=== PATIENT | male | born 1965 | race Caucasian/White ===

== ENCOUNTER 2020-11-02 07:43 | Day surgery (SDC) | payer OTHER ==
[~2020-11-02] VITALS: Ht 182.9 cm; Wt 93.0 kg
--- NOTE | ~2020-11-02 | OR ---
[facility] [address], [place] [address] Draft DATE OF OPERATION: 11/02/2020 SURGEON: Zita Magaña MD PREOPERATIVE DIAGNOSES: Episodic epigastric pain, possible gastroesophageal reflux. POSTOPERATIVE DIAGNOSES: 1. Normal-appearing esophageal mucosa with associated small hiatal hernia. 2. Mild diffuse gastritis with antral erosions. PROCEDURE: Esophagogastroduodenoscopy with biopsy. ANESTHESIA: Intravenous sedation, fentanyl 100 mcg and Versed 4 mg. INDICATION: This 55-year-old white man is a patient of Dr. Ashish Elias of [place], [place]. He has had episodes of significant severe epigastric pain, which were relieved primarily by PPI medication. He lists as his current medication Pepcid and Prilosec currently. 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 He is admitted at this time to undergo upper endoscopy to better characterize this problem. Notably, he has no dysphagia or hematemesis or blood per rectum. His family history is unknown as regard to esophageal or gastric cancer as he is adopted. He understands the risks of upper endoscopy including, but not limited to bleeding, infection, and perforation and wished to proceed. FINDINGS: Esophageal mucosa looked quite good overall. There was a poor flap valve consistent with small hiatal hernia. There was mild reticular diffuse gastritis and a few minor erosions of the antrum. CLOtest was negative. The duodenum was normal. DESCRIPTION OF PROCEDURE: The patient was brought to the endoscopy suite, given topical lidocaine hypopharyngeal anesthesia and placed in lateral decubitus position. He was given intravenous sedation to the point of slurred speech and nystagmus with full cardiopulmonary monitoring. A bite block was placed. An Olympus video upper endoscope was passed in the hypopharynx. The vocal cords PATIENT NAME: CHAPIN DOWNING OPERATIVE REPORT DATE OF : 65 REPORT #: [id number] PHYSICIAN: ZITA MAGAÑA MD PCP: ASHISH ELIAS MD REPORT IS CONFIDENTIAL AND NOT TO BE RELEASED WITHOUT AUTHORIZATION [facility] [address], [place] [address] Draft appeared normal. Scope was advanced to the esophagus without problem throughout its length, it was normal with no evidence of Koehler's epithelium, stricture, neoplasm or severe esophagitis in any way. The scope was advanced to the stomach, which was insufflated with air. There was no sign of bile within the stomach. Rugal folds appeared normal. The scope was passed to the antrum where there were mild superficial erosive changes. The pylorus was normal. Scope was passed through into the duodenum. Duodenum was normal including the bulbar portion. Biopsies were obtained to assess for celiac disease. The scope was withdrawn. A biopsy was then taken of the antrum for both JOVANNY and pathologic testing. Retroflexed view showed a compromised flap valve, easy withdrawal of the tip of the scope into the esophagus was noted. The proximal stomach did have mild reticular diffuse gastritis for which biopsies were also obtained. The scope was straightened withdrawn and biopsies taken of the distal esophagus and subsequently mid esophagus. Careful withdrawal of scope showed no other abnormalities more proximally. The vocal cords were well visualized and normal. The scope was removed and the patient was taken to the recovery room in good condition. CONCLUDING DIAGNOSIS: The patient may have episodic reflux symptoms due to the poor flap valve, but the mucosa currently appears normal without sign of stricture, neoplasm and certainly no Koehler's epithelium. The mild diffuse reticular gastritis may account for most of his symptoms. Although, he is on dual therapy of H2 blockers and PPI, I would have him consider Carafate 1 g p.o. q.i.d. if possible as an assessment of overall improvement for his symptoms. I would have him pick either Pepcid or PPI medication. We will see him back in the office in 4-6 weeks and assess his progress. He should minimize cigar smoking as much as possible and certainly avoid nonsteroidals as much as possible as well. MD MELANY Hall/TILAL /[id number] cc: Ashish Elias MD Copies: ASHISH ELIAS MD PATIENT NAME: CHAPIN DOWNING OPERATIVE REPORT DATE OF : 65 REPORT #: [id number] PHYSICIAN: ZITA MAGAÑA MD PCP: ASHISH ELIAS MD REPORT IS CONFIDENTIAL AND NOT TO BE RELEASED WITHOUT AUTHORIZATION [facility] [address] [place] [address] Draft ~ PATIENT NAME: CHAPIN DOWNING OPERATIVE REPORT DATE OF : 65 REPORT #: [id number] PHYSICIAN: ZITA MAGAÑA MD PCP: ASHISH ELIAS MD REPORT IS CONFIDENTIAL AND NOT TO BE RELEASED WITHOUT AUTHORIZATION
[~2020-11-02 07:43] MED LIST: CEPHALEXIN500 MG PO; IBUPROFEN800 MG PO; NORCO 5-325 TA1 EACH PO; SEPTRA DS TABL1 EACH PO
[2020-11-02] MEDS ORDERED: PEPCID AC10 MG PO (07:57)
[2020-11-02] MEDS ORDERED: OMEPRAZOLE20 MG PO (07:57)
--- NOTE | 2020-11-02 08:47 | NUR ---
11/02/20 0847 Magalis Leija 0842- PT ARRIVES TO PACU AWAKE AND TALKING. PT REPORTS NO PAIN OR NAUSEA. RESP EVEN AND UNLABORED. OXYGEN SAT LOW TO MID 90'S ON 2L VIA NC.
--- NOTE | 2020-11-04 12:45 | PATH ---
[facility] [address], [place] [address] Signed SPECIMEN(S): A DUODENAL BIOPSY SPECIMEN(S): B ANTRUM/PYLORUS BIOPSY SPECIMEN(S): C PROXIMAL STOMACH BIOPSY SPECIMEN(S): D LOWER ESOPHAGEAL BIOPSY SPECIMEN(S): E MIDDLE ESOPHAGEAL BIOPSY SPECIMEN SOURCE: A. DUODENAL BIOPSY B. ANTRUM/PYLORUS BIOPSY C. PROXIMAL STOMACH BIOPSY D. LOWER ESOPHAGEAL BIOPSY E. MIDDLE ESOPHAGEAL BIOPSY CLINICAL HISTORY: Esophagogastroduodenoscopy. Pre: GERD. Post: Small hiatal hernia, esophagitis. MICROSCOPIC DESCRIPTION: Histologic sections of all submitted blocks are examined by light microscopy. These findings, together with the gross examination, support the pathologic diagnosis. FINAL PATHOLOGIC DIAGNOSIS: A. Duodenum, biopsy: - Duodenal mucosa with no histopathologic abnormality. - Negative for increased intraepithelial lymphocytes. - Negative for dysplasia or malignancy. B. Stomach, antrum/pylorus, biopsy: - Antral mucosa with mild chronic, inactive gastritis. - Negative for Helicobacter organisms on HE stain. - Negative for dysplasia or malignancy. C. Stomach, proximal, biopsy: - Oxyntic mucosa with focal mucosal papillary congestion. - Negative for Helicobacter organisms on HE stain. - Negative for dysplasia or malignancy. D. Esophagus, distal, biopsy: - Squamous mucosa with reactive epithelial changes and minimal chronic inflammation, suggestive of reflux esophagitis. - Detached foveolar type glands with no histopathologic abnormality. - Negative for intestinal metaplasia, dysplasia, or malignancy. E. Esophagus, middle, biopsy: - Squamous mucosa with mild reactive changes. PATIENT NAME: CHAPIN DOWNING PATHOLOGY DATE OF : 65 REPORT #: [id number] PHYSICIAN: JUAN R METZGER PCP: ASHISH ELIAS MD REPORT IS CONFIDENTIAL AND NOT TO BE RELEASED WITHOUT AUTHORIZATION [facility] [address], [place] [address] Signed - Negative for increased epithelial eosinophils. - Negative for intestinal metaplasia, dysplasia, or malignancy. NAL:cml:C2NR GROSS DESCRIPTION: Five specimens are received in five containers, labeled "DB." A. The specimen, labeled "DB, 1," and designated on the requisition "duodenum," is received in formalin and consists of one fontaine soft tissue fragment that measures 0.3 cm in greatest dimension. The specimen is entirely submitted in cassette (A1). B. The specimen, labeled "DB, 2," and designated on the requisition "antrum/pylorus," is received in formalin and consists of two fontaine soft tissue fragments that measure 0.3-0.4 cm in greatest dimension. The specimen is entirely submitted in cassette (B1). C. The specimen, labeled "DB, 3," and designated on the requisition "proximal stomach," is received in formalin and consists of two fontaine soft tissue fragments that measure 0.2-0.5 cm in greatest dimension. The specimen is entirely submitted in cassette (C1). D. The specimen, labeled "DB, 4," and designated on the requisition "lower esophagus," is received in formalin and consists of two fontaine soft tissue fragments that measure 0.3-0.5 cm in greatest dimension. The specimen is entirely submitted in cassette (D1). E. The specimen, labeled "DB, 5," and designated on the requisition "middle esophagus," is received in formalin and consists of one fontaine soft tissue fragment that measures 0.3 cm in greatest dimension. The specimen is entirely submitted in cassette (E1). AT (under the direct supervision of a pathologist) The Gross Description was prepared using a voice recognition system. The report was reviewed for accuracy; however, sound-alike word errors, addition and/or deletions may occur. If there is any question about this report, please contact Client Services. PERFORMING LABORATORY: The technical component was performed by [facility], [address] [place] [id number] (Car Hopper: Lidia Ruiz MD; CLIA# [id number]). Professional interpretation was performed by [facility], [facility], [address] [place] [id number] (CLIA# [id number]). Diagnostician: Hellen Todd MD Pathologist PATIENT NAME: CHAPIN DOWNING PATHOLOGY DATE OF : 65 REPORT #: [id number] PHYSICIAN: JUAN R METZGER PCP: ASHISH ELIAS MD REPORT IS CONFIDENTIAL AND NOT TO BE RELEASED WITHOUT AUTHORIZATION [address] [address] Signed Electronically Signed 11/04/2020 Copies: ~ PATIENT NAME: CHAPIN DOWNING PATHOLOGY DATE OF : 65 REPORT #: [id number] PHYSICIAN: JUAN R PATHOLOGY PCP: ASHISH ELIAS MD REPORT IS CONFIDENTIAL AND NOT TO BE RELEASED WITHOUT AUTHORIZATION
== END 2020-11-02 09:30 | disposition home or self-care (01) ==
LOC: OPS 07:43 → DS 07:43 → OPS 08:30
PROVIDERS: ATTEND Surgery
PROC: 0DB78ZX Excision of Stomach, Pylorus, Via Natural or Artificial Opening Endoscopic, Diagnostic (ICD-10-PCS; 2020-11-02)
PROC: 0DB18ZX Excision of Upper Esophagus, Via Natural or Artificial Opening Endoscopic, Diagnostic (ICD-10-PCS; 2020-11-02)
PROC: 0DB28ZX Excision of Middle Esophagus, Via Natural or Artificial Opening Endoscopic, Diagnostic (ICD-10-PCS; 2020-11-02)
PROC: 0DB38ZX Excision of Lower Esophagus, Via Natural or Artificial Opening Endoscopic, Diagnostic (ICD-10-PCS; 2020-11-02)
PROC: 0DB98ZX Excision of Duodenum, Via Natural or Artificial Opening Endoscopic, Diagnostic (ICD-10-PCS; principal; 2020-11-02 08:30)
DX: K25.9 Gastric ulcer, unspecified as acute or chronic, without hemorrhage or perforation (principal); K44.9 Diaphragmatic hernia without obstruction or gangrene; K21.00 Gastro-esophageal reflux disease with esophagitis, without bleeding; L63.1 Alopecia universalis; F17.290 Nicotine dependence, other tobacco product, uncomplicated; Z88.5 Allergy status to narcotic agent
CPT/HCPCS: 99153; G0500; J2250; J3010; J7121

== ENCOUNTER 2021-07-30 11:14 | Emergency (ER) | payer OTHER ==
[~2021-07-30] VITALS: Ht 182.9 cm; Wt 93.0 kg
[~2021-07-30 11:14] MED LIST changes: +OMEPRAZOLE20 MG PO; +PEPCID AC10 MG PO
[2021-07-30] MEDS ORDERED: LIDOCAINE HCL100 ML MT (14:03)
[2021-07-30] MEDS ORDERED: MECLIZINE HCL25 MG PO (22:14)
[2021-07-30] MEDS ORDERED: CEPHALEXIN500 MG PO (22:14)
[2021-07-30] MEDS ORDERED: ONDANSETRON ODT8 MG PO (22:14)
[2021-07-30] MEDS ORDERED: HYDROCODON-ACE1 EA10 PO (22:34)
== END 2021-07-30 14:15 | disposition home or self-care (01) ==
LOC: ED 11:14
DX: R06.02 Shortness of breath (principal); R05.9 Cough, unspecified; Z20.822 Contact with and (suspected) exposure to COVID-19; Z88.5 Allergy status to narcotic agent; Z79.899 Other long term (current) drug therapy
CPT/HCPCS: 99283; U0003

== ENCOUNTER 2021-07-30 21:34 | Emergency (ER) | payer OTHER ==
[~2021-07-30] VITALS: Ht 182.9 cm; Wt 93.0 kg
[~2021-07-30 21:34] MED LIST changes: +LIDOCAINE HCL100 ML MT
--- OUTSIDE RECORDS SUMMARY | 2021-07-30 21:42 | XMS ---
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 ETirso VISIT COUNT (12 MO.) 2 [facility] TOTAL 2 NOTE: Visits indicate total known visits. ED/UCC VISIT TRACKING (12 MO.) 07/30/2021 21:35 [facility] TYPE: Emergency COMPLAINT: - DIZZINESS, R EAR PAIN 07/30/2021 11:15 [facility] [place] TYPE: Emergency COMPLAINT: - SOB, EARACHES, COUGH INPATIENT VISIT TRACKING (12 MO.) No inpatient visits to display in this time frame [email or web address]
[2021-07-30] MEDS ORDERED: CEPHALEXIN500 MG PO (22:14)
[2021-07-30] MEDS ORDERED: MECLIZINE HCL25 MG PO (22:14)
[2021-07-30] MEDS ORDERED: ONDANSETRON ODT8 MG PO (22:14)
[2021-07-30] MEDS ORDERED: HYDROCODON-ACE1 EA10 PO (22:34)
== END 2021-07-30 22:34 | disposition home or self-care (01) ==
LOC: ED 21:34
DX: H92.01 Otalgia, right ear (principal); R11.0 Nausea; R42 Dizziness and giddiness; B97.4 Respiratory syncytial virus as the cause of diseases classified elsewhere; Z88.5 Allergy status to narcotic agent; Z79.899 Other long term (current) drug therapy
CPT/HCPCS: 99283; A9270